=== PATIENT | male | born 1995 | race Caucasian/White ===

== ENCOUNTER 2018-02-17 00:15 | Emergency (ER) | payer OTHER ==
--- NOTE | 2018-02-17 00:23 | PDOC ---
History of Present Illness - General Stated Complaint: DIZZY, H/A X 3 WEEKS Time Seen by Provider: 02/17/18 00:22 History Source: Patient Exam Limitations: No Limitations - History of Present Illness Initial Comments: 02/17/18 00:33 This is a 22-year-old healthy male who comes in for evaluation of 3 weeks of feeling poorly. Patient is complaining of multiple symptoms including headache, nausea and dizziness. Patient said he is also had some vomiting over the last couple of days and now feels dizzy. Patient did not see anyone for his symptoms. Patient took some ibuprofen approximately 3 days ago for the headache. Patient denies any fevers or chills. Patient denies any recent travel. Patient said he does not go outside and he has no pets and is not in any area where he could about a tick bite. PAST MEDICAL HISTORY: no significant history PAST SURGICAL HISTORY: no significant history FAMILY HISTORY: no pertinant history SOCIAL HISTORY: Pt lives with family and is employed. MEDICATIONS: reviewed ALLERGIES: As per nursing notes Review of Systems General: No fevers or chills, no weakness, no weight loss HEENT: No change in vision. No sore throat,. No ear pain CardioVascular: No chest pain or shortness of breath Respiratory:No cough, or wheezing. Gastrointestinal: no nausea, vomitting, diarrhea or constipation, No rectal bleeding Genitourinary: No dysuria, hematuria, or frequency Musculoskeletal: No joint or muscle pain or swelling Neurologic: No headache, vertigo, dizziness or loss of consciousness Psychiatric: nor depression Skin: No rashes or easy bruising Endocrine: no increased thirst or abnormal weight change Allergic: no skin or latex allergy All other systems reviewed and normal Exam: General: Well-nourished well-developed individual, no acute distress HEENT: Throat: Normal, tonsils normal, no erythema or exudate Neck: Supple, no meningeal signs, no lymphadenopathy Eyes::Pupils equal reactive and round, extraocular motion intact Chest: Nontender to palpation Cardiac: S1-S2 normal, regular rate and rhythm, no murmurs rubs or gallops Respiratory: Lungs clear to auscultation bilateral Abdomen: Soft, nondistended, normal bowel sounds, nontender to palpation diffusely Extremities: Warm, dry, no cyanosis, clubbing, or edema Skin: No rashes Neuro: Alert and oriented x3, CN II - XII intact, nonfocal exam with normal strength, normal sensation, normal reflexes, normal gait, Psych: Normal mood and affect Assessment and plan: Patient given a liter fluid and basic labs are sent. All his labs were normal. Patient was ambulatory throughout the emergency room well receiving his fluids and was in no distress chatting in talking comfortably with a friend that had come with him. Patient discharged home and told to follow -up with his primary care doctor. 02/17/18 19:33 Past History - Past Medical History Allergies/Adverse Reactions: Allergies Allergy/AdvReac Type Severity Reaction Status Date / Time No Known Allergies Allergy Verified 02/17/18 00:48 ED Treatment Course - LABORATORY CBC & Chemistry Diagram: 02/17/18 01:00 02/17/18 01:00 *DC/Admit/Observation/Transfer Diagnosis at time of Disposition: Viral syndrome - Discharge Dispostion Disposition: HOME Condition at time of disposition: Good Decision to Admit order: No - Referrals - Patient Instructions Printed Discharge Instructions: DI for Viral Syndrome Additional Instructions: Tylenol or Motrin as needed for the headache. Clear liquids only for the next 6 hours.. After that if you have had no further vomiting you may have bananas, rice, applesauce, or toast. If no further vomiting for another 8 hours you may have regular food. If you vomit again then nothing to eat or drink for 2 hours. then start back with the clear liquids. Return to the emergency department immediately with ANY new, persistent or worsening symptoms. You MUST call and follow up with your doctor tomorrow if not better. Please make sure your doctor reviews the results of your emergency evaluation. Thank you for coming to the Emergency Department today for your care. It was a pleasure to see you today. Please note that your evaluation is INCOMPLETE until you follow-up with your doctor. - Post Discharge Activity
[2018-02-17] MEDS ORDERED: ONDANSETRON 4 MG/2 ML VIAL IVPUSH ONE (00:32)
[2018-02-17] MEDS ORDERED: SODIUM CHLORIDE 1,000 ML IV ONE (00:32)
[2018-02-17] MEDS ORDERED: KETOROLAC TROMETHAMINE 30 MG/1 ML VIAL IVPUSH ONE (00:33)
[2018-02-17 00:45] VITALS: BP 135/85; PULSE 75; TEMP 98.6; BMI 26.2
[2018-02-17] MEDS ORDERED: KETOROLAC TROMETHAMINE 30 MG/1 ML VIAL ONE (00:57)
[2018-02-17] MEDS ORDERED: ONDANSETRON 4 MG/2 ML VIAL ONE (00:58)
[2018-02-17 01:53] LABS: BASO % 0.7 % (0-2.0); EOS % 1.5 % (0-4.5); HEMATOCRIT 46.6 % (35.4-49); HEMOGLOBIN 16.4 GM/dL (11.7-16.9); LYMPH % 23.5 % (8-40); MCH 32.8 pg (25.7-33.7); MCHC 35.3 g/dl (32.0-35.9); MEAN CELL VOLUME 92.8 fl (80-96); MEAN PLT VOLUME 7.9 fl (7.5-11.1); MONO % 11.5 % (3.8-10.2); NEUT % 62.8 % (42.8-82.8); PLATELET COUNT 324 K/MM3 (134-434); RBC 5.02 M/mm3 (4.00-5.60); RDW 12.8 % (11.9-15.9); WHITE BLOOD COUNT 9.1 K/mm3 (4.0-10.0)
[2018-02-17 02:24] LABS: ANION GAP 7 (8-16); BLOOD UREA NITROGEN 11 mg/dL (7-18); CALCIUM 8.9 mg/dL (8.5-10.1); CHLORIDE 101 mmol/L (98-107); CO2 30 mmol/L (21-32); CREATININE 0.9 mg/dL (0.7-1.3); GLUCOSE,RANDOM 92 mg/dL (74-106); SGOT/AST 25 U/L (15-37); SGPT/ALT 41 U/L (12-78); SODIUM 138 mmol/L (136-145)
[2018-02-17 02:26] LABS: ALK PHOS 66 U/L (45-117); BILIRUBIN,TOTAL 0.5 mg/dL (0.2-1.0); TOT PROT 7.6 g/dl (6.4-8.2)
== END 2018-02-17 02:32 | disposition home or self-care (01) ==
LOC: FER 00:15
PROC: 3E0333Z Introduction of Anti-inflammatory into Peripheral Vein, Percutaneous Approach (ICD-10-PCS; principal; 2018-02-17)
PROC: 3E033GC Introduction of Other Therapeutic Substance into Peripheral Vein, Percutaneous Approach (ICD-10-PCS; 2018-02-17)
PROC: 3E0337Z Introduction of Electrolytic and Water Balance Substance into Peripheral Vein, Percutaneous Approach (ICD-10-PCS; 2018-02-17)
DX: B34.9 Viral infection, unspecified (principal)
CPT/HCPCS: 36415; 80053; 85025; 99283-25; J7030

== ENCOUNTER 2023-03-15 13:26 | Emergency (ER) | payer OTHER ==
[2023-03-15 13:44] VITALS: BP 133/63; PULSE 74; RESP 18; TEMP 98.1; BMI 29.9
[2023-03-15] MEDS ORDERED: ACETAMINOPHEN 500 MG TABLET (FP) PO ONE (14:06)
[2023-03-15] MEDS ORDERED: KETOROLAC TROMETHAMINE 30 MG/1 ML VIAL IM ONE (14:06)
[2023-03-15] MEDS ORDERED: KETOROLAC TROMETHAMINE 30 MG/1 ML VIAL ONE (14:14)
[2023-03-15] MEDS ORDERED: ACETAMINOPHEN 500 MG TABLET (FP) ONE ×2 (14:14→14:17)
== END 2023-03-15 14:45 | disposition home or self-care (01) ==
LOC: JER 13:26
PROC: 3E0233Z Introduction of Anti-inflammatory into Muscle, Percutaneous Approach (ICD-10-PCS; principal; 2023-03-15)
DX: M54.50 Low back pain, unspecified (principal)
CPT/HCPCS: 99284-25